=== PATIENT | male | born 1990 | race Caucasian/White ===

== ENCOUNTER 2018-10-05 22:23 | Emergency (ER) | payer BC ==
--- NOTE | 2018-10-05 23:21 | EDM.PDOC ---
ED HPI GENERAL MEDICAL PROBLEM - General Chief Complaint: Abdominal Pain Stated Complaint: RT SIDE PAIN Time Seen by Provider: 10/05/18 22:53 Source of Information: Reports: Patient, RN Notes Reviewed, Significant Other ( Girlfriend) History Limitations: Reports: No Limitations - History of Present Illness INITIAL COMMENTS - FREE TEXT/NARRATIVE: The patient states that he has been coughing for the past 2 or 3 weeks, but felt fine today. He states that he developed right upper quadrant pain, radiating to his right back (he indicates his right mid back, posterior axillary line), around 15:30 to 16:00 this afternoon. He states that he was not coughing at the time. He has had some nausea and one episode of emesis prior to coming to the ED. He has chronic watery diarrhea. He has had a subjective fever with chills today. At present, the pain is persistent, even if he remains still , but made worse if he coughs or takes a deep breath. No prior similar symptoms. The patient states that he took some ibuprofen around 17:30 this evening, without relief of symptoms. The patient relates that he had a cholecystectomy about 6 months ago. He does not recall the female surgeon's name. He states that he was told at the time that one or two gallstones might have gotten away. The patient does not have a PCP. Right Upper Abdomen Pain Score (Numeric/FACES): 7 - Related Data Allergies Allergy/AdvReac Type Severity Reaction Status Date / Time No Known Allergies Allergy Verified 10/05/18 22:30 Home Meds: Home Meds Orphenadrine [Norflex] 1 tab PO Q12H PRN #14 tab.er 10/06/18 [Rx] Past Medical History HEENT History: Reports: Allergic Rhinitis, Impaired Vision Other HEENT History: Wears glasses Endocrine/Metabolic History: Reports: Obesity/BMI 30+ - Past Surgical History HEENT Surgical History: Reports: Adenoidectomy, Oral Surgery (wisdom teeth extraction), Tonsillectomy GI Surgical History: Reports: Cholecystectomy (around Apr 2018) Social & Family History - Tobacco Use Smoking Status *Q: Never Smoker Tobacco Use Within Last Twelve Months: Smokeless Tobacco (Chews on occasion, but used to chew 1 can/day) - Alcohol Use Alcohol Use History: Yes Days Per Week of Alcohol Use: 7 Number of Drinks Per Day: 4 Total Drinks Per Week: 28 Alcohol Use Frequency: Socially (occasionally to excess) - Recreational Drug Use Recreational Drug Use: No - Living Situation & Occupation Living situation: Reports: , Alone Occupation: Employed (Construction) ED ROS GENERAL - Review of Systems Review Of Systems: ROS reveals no pertinent complaints other than HPI. ED EXAM, GENERAL - Physical Exam Exam: See Below Exam Limited By: No Limitations General Appearance: Alert, WD/WN, No Apparent Distress Eye Exam: Bilateral Eye: EOMI, Normal Inspection Ears: Normal External Exam, Hearing Grossly Normal Nose: Normal Inspection Throat/Mouth: Normal Inspection, Normal Lips, Normal Voice, No Airway Compromise Head: Atraumatic, Normocephalic Neck: Normal Inspection, Full Range of Motion Respiratory/Chest: No Respiratory Distress, Lungs Clear, Normal Breath Sounds, No Accessory Muscle Use. No: Crackles, Rhonchi, Wheezing, Pleural Rub Cardiovascular: Normal Peripheral Pulses, Regular Rate, Rhythm, No Gallop, No JVD, No Murmur, No Rub Peripheral Pulses: 4+: Radial (L), Radial (R) GI/Abdominal: Normal Bowel Sounds, Soft, No Organomegaly, No Distention, No Abnormal Bruit, No Mass, Tender (Minimal tenderness to palpation of the right upper quadrant, however, the patient has reproducible tenderness to palpation of the inferior right rib margin.), Other (Obese) (Male) Exam: Deferred Rectal (Males) Exam: Deferred Back Exam: Normal Inspection, Full Range of Motion, Other (No tenderness, including to the right mid back, posterior axillary line, where the patient indicates his pain radiates to). No: CVA Tenderness (L), CVA Tenderness (R) Extremities: Normal Inspection, Normal Range of Motion, No Pedal Edema, Normal Capillary Refill Neurological: Alert, Oriented, Normal Cognition, No Motor/Sensory Deficits Psychiatric: Normal Affect Skin Exam: Warm, Dry, Intact, Normal Color, No Rash Course - Vital Signs Last Recorded V/S: Last Vital Signs Temp 37.1 C 10/05/18 22:30 Pulse 109 H 10/05/18 22:30 Resp 20 10/05/18 22:30 BP 170/108 H 10/05/18 22:30 Pulse Ox 98 10/05/18 22:30 - Orders/Labs/Meds Orders: Active Orders 24 hr Category Date Time Status Chest 2V [CR] Stat Exams 10/05/18 23:14 Taken Ibuprofen [Motrin] Med 10/06/18 01:28 Once 600 mg PO ONETIME ONE Orphenadrine [Norflex] Med 10/06/18 01:28 Stat 100 mg PO ONETIME STA Labs: Laboratory Tests 10/05/18 10/05/18 Range/Units 23:30 23:30 WBC 4.97 (4.23-9.07) K/mm3 RBC 5.38 (4.63-6.08) M/mm3 Hgb 16.5 (13.7-17.5) gm/L Hct 46.6 (40.1-51.0) % MCV 86.6 (79.0-92.2) fl MCH 30.7 (25.7-32.2) pg MCHC 35.4 (32.2-35.5) g/dl RDW Std Deviation 39.5 (35.1-43.9) fL Plt Count 214 (163-337) K/mm3 MPV 9.2 L (9.4-12.3) fl Neutrophils % (Manual) 72 H (40-60) % Band Neutrophils % 3 (0-10) % Lymphocytes % (Manual) 11 L (20-40) % Atypical Lymphs % 0 % Monocytes % (Manual) 14 H (2-10) % Eosinophils % (Manual) 0 L (0.8-7.0) % Basophils % (Manual) 0 L (0.2-1.2) Platelet Estimate Adequate Plt Morphology Comment Normal RBC Morph Comment Normal Sodium 136 (136-145) mEq/L Potassium 3.5 (3.5-5.1) mEq/L Chloride 101 (98-107) mEq/L Carbon Dioxide 21 (21-32) mEq/L Anion Gap 17.5 H (5-15) BUN 9 (7-18) mg/dL Creatinine 1.3 (0.7-1.3) mg/dL Est Cr Clr Drug Dosing 93.90 mL/min Estimated GFR (MDRD) > 60 (>60) mL/min BUN/Creatinine Ratio 6.9 L (14-18) Glucose 116 H (74-106) mg/dL Calcium 8.8 (8.5-10.1) mg/dL Total Bilirubin 0.7 (0.2-1.0) mg/dL AST 102 H (15-37) U/L ALT 102 H (16-63) U/L Alkaline Phosphatase 89 (46-116) U/L Total Protein 7.3 (6.4-8.2) g/dl Albumin 3.9 (3.4-5.0) g/dl Globulin 3.4 gm/dL Albumin/Globulin Ratio 1.2 (1-2) Lipase 178 (73-393) U/L - Re-Assessments/Exams Free Text/Narrative Re-Assessment/Exam: 10/05/18 23:15 The patient's history of cholecystectomy about 6 months ago leads me to be concerned about a retained common bile duct stone, however, on physical examination, he is tender to the lower rib margin, not to the right upper quadrant of his abdomen, therefore I think the likelihood of a retained common bile duct stone is quite small. Even less likely is the likelihood that the patient has a lower right pneumonia. I believe that the patient's pain is most likely due to a muscle strain related to recent coughing. For today's purposes, I have ordered some blood work and a chest x-ray, but if they are normal, as I anticipate that they will be, I believe the patient can safely be discharged home with a prescription for Norflex. If his symptoms persist, I would then have him follow-up with the surgeon that performed his cholecystectomy, to perform further evaluation for a retained common bile duct stone, a workup that would likely include a MRCP. 10/06/18 00:00 2 view chest radiograph appears to be grossly normal. The cardiac silhouette is within normal limits. No pulmonary vascular congestion. No pleural effusions. No focal infiltrate. No pneumothorax. Formal read per the Radiologist pending. 10/06/18 01:29 Test results discussed with the patient and his girlfriend. Today's workup is unremarkable. There is no suggestion of infection. His transaminases are mildly elevated, but his alkaline phosphatase and total bilirubin are well within normal limits. For today's purposes, I will start the patient on oral Norflex, and send in a prescription for the same. I would also like him to take over-the- counter ibuprofen. As above, if he continues to have pain after a few days, I would like him to follow-up with the surgeon who performed his cholecystectomy, for further evaluation. Departure - Departure Time of Disposition: 01:31 Disposition: Home, Self-Care 01 Condition: Good Clinical Impression: Intercostal muscle pain - Discharge Information *PRESCRIPTION DRUG MONITORING PROGRAM REVIEWED*: Not Applicable *COPY OF PRESCRIPTION DRUG MONITORING REPORT IN PATIENT AMPARO: Not Applicable Referrals: PCP,None [Primary Care Provider] - Forms: ED Department Discharge Additional Instructions: You were seen for pain in your upper right abdomen, that radiated through to your right back. Workup in the ER included blood work and a chest x-ray, all of which were unremarkable. There is no sign of an infection. Based on your history, physical examination, and ER tests, your pain is most likely due to a muscle spasm, however, it is also possible that you have a retained common bile duct stone. You have been started on the muscle relaxant Norflex. A prescription for Norflex has been sent to the [facility], located in the [facility] grocery store. Take one tablet of Norflex every 12 hours, as prescribed. In addition to Norflex, we recommend that you take [id number] ibuprofen, 2 -3 tablets (400-600 mg) every 8 hours, with food, as needed for discomfort. If you continue to have pain after a few days, we recommend that you follow-up with the surgeon that performed your cholecystectomy, for further evaluation, that may include a MRCP. If any other problems, please do not hesitate to return to the ER. - My Orders Last 24 Hours: My Active Orders 10/05/18 23:14 Chest 2V [CR] Stat 10/06/18 01:28 Ibuprofen [Motrin] 600 mg PO ONETIME ONE Orphenadrine [Norflex] 100 mg PO ONETIME STA - Assessment/Plan Last 24 Hours: My Active Orders 10/05/18 23:14 Chest 2V [CR] Stat 10/06/18 01:28 Ibuprofen [Motrin] 600 mg PO ONETIME ONE Orphenadrine [Norflex] 100 mg PO ONETIME STA
[2018-10-06] MEDS ORDERED: Orphenadrine 100 MG Tab.ER PO STA (01:28)
[2018-10-06] MEDS ORDERED: Ibuprofen 600 MG Tab PO ONE (01:28)
[2018-10-06] MEDS ORDERED: Orphenadrine 100 MG Tab.ER ONE (01:31)
--- NOTE | 2018-10-06 18:27 | CR ---
Chest: Two views of the chest were obtained. Comparison: No prior chest x-ray. Heart size and mediastinum are normal. Slight scar or minimal atelectasis is noted within the right upper lung. Lungs otherwise are clear. Bony structures are unremarkable. Impression: 1. Minimal scar or atelectasis within the right upper lung. 2. Nothing acute is seen. Diagnostic code #2
== END 2018-10-06 01:40 | disposition home or self-care (01) ==
LOC: JD.ED 22:23
DX: R07.82 Intercostal pain (principal); F17.220 Nicotine dependence, chewing tobacco, uncomplicated
CPT/HCPCS: 36415; 71046; 80053; 83690; 85007; 85027; 99284; A9270

== ENCOUNTER 2018-10-09 18:05 | Emergency (ER) | payer BC ==
[2018-10-09] MEDS ORDERED: Sodium Chloride 0.9% 1,000 ML IV SCH (19:20)
[2018-10-09] MEDS ORDERED: Sodium Chloride 0.9% 1,000 ML ONE (19:24)
--- NOTE | 2018-10-09 20:13 | EDM.PDOC ---
ED HPI GENERAL MEDICAL PROBLEM - General Chief Complaint: Fever Stated Complaint: ABNORMAL LABS Time Seen by Provider: 10/09/18 18:30 Source of Information: Reports: Patient, Old Records History Limitations: Reports: No Limitations - History of Present Illness INITIAL COMMENTS - FREE TEXT/NARRATIVE: 28 year old male is sent over from the clinic for IV hydration and possible admission. Patient was seen in the ER on 10-05-18 for right sided chest pain. Chest xray was done ans was unremarkable. He was given muscle relaxers and these have significantly improved the pain. Patient had a lap henrry about 6 months ago. Informed some stones may have gotten into the biliary tree. He was therefore instructed to follow-up with the surgeon who preformed the lap henrry. Patient presented to the surgeons office today for follow-up. Seen by the surgeon's FILE CONVERSION OPERATOR. Patient had labs including a CBC, CMP, UA and several other preformed. Also had a CT of the chest, abdomen and pelvis. Found to have thrombocytopenia, leukopenia and elevated transaminases. CT shows mild splenomegaly and cyst to the left kidney. Sent over to the ER for hydration and possible admission. Upon my interview the patient appears in no distress. Reports symptoms first started with a sore throat, cough and right sided chest pain. Since being seen in the ER reports the chest pain has significantly improved. Patient reports he has since developed fever, highest of 105 at home. Fever resolves with tylenol or motrin. Has not had any tylenol or motrin today. Denies any ear pain, shortness of breath, abdominal pain, nausea, vomiting, urinary symptoms or diarrhea. Patient denies any recent travel. Lives at home with children. - Related Data Allergies Allergy/AdvReac Type Severity Reaction Status Date / Time No Known Allergies Allergy Verified 10/09/18 22:27 Home Meds: Home Meds Orphenadrine [Norflex] 1 tab PO Q12H PRN #14 tab.er 10/06/18 [Rx] Codeine/Promethazine [Phenergan with Codeine] 5 ml PO Q6HR PRN #120 ml 10/09/18 [Rx] Past Medical History HEENT History: Reports: Allergic Rhinitis, Impaired Vision Other HEENT History: Wears glasses Endocrine/Metabolic History: Reports: Obesity/BMI 30+ - Past Surgical History HEENT Surgical History: Reports: Adenoidectomy, Oral Surgery (wisdom teeth extraction), Tonsillectomy GI Surgical History: Reports: Cholecystectomy (around Apr 2018) Social & Family History - Living Situation & Occupation Living situation: Reports: , Alone Occupation: Employed (Construction) ED ROS GENERAL - Review of Systems Review Of Systems: See Below Constitutional: Reports: Fever (highest of 105 at home), Fatigue HEENT: Reports: Throat Pain. Denies: Ear Pain Respiratory: Reports: Cough. Denies: Shortness of Breath, Pleuritic Chest Pain Cardiovascular: Reports: Chest Pain (right anterior lateral chest pain; improving). Denies: Syncope GI/Abdominal: Denies: Abdominal Pain, Diarrhea, Nausea, Vomiting : Reports: No Symptoms ED EXAM, GENERAL - Physical Exam Exam: See Below Exam Limited By: No Limitations General Appearance: Alert, WD/WN, No Apparent Distress Ears: Normal External Exam, Normal Canal, Hearing Grossly Normal, Normal TMs Ear Exam: Bilateral Ear: Auricle Normal, Canal Normal, TM normal Nose: Normal Inspection Throat/Mouth: Normal Inspection, Normal Lips, Normal Oropharynx, Normal Voice, No Airway Compromise Neck: Normal Inspection Respiratory/Chest: No Respiratory Distress, Lungs Clear, Normal Breath Sounds Cardiovascular: Normal Peripheral Pulses, Regular Rate, Rhythm, No Murmur GI/Abdominal: Normal Bowel Sounds, Soft, Non-Tender Neurological: Alert, Oriented, Normal Cognition Psychiatric: Normal Affect, Normal Mood Skin Exam: Warm, Dry, Normal Color Course - Orders/Labs/Meds Labs: Laboratory Tests 10/09/18 10/09/18 Range/Units 19:20 19:20 Monoscreen Negative (NEGATIVE) Mycoplasma pneumon IgM Negative (NEGATIVE) Meds: Medications Discontinued Medications Generic Name Dose Route Start Last Admin Trade Name Madeleine PRN Reason Stop Dose Admin Sodium Chloride Confirm 10/09/18 19:24 Normal Saline Administered 10/09/18 19:25 Dose 1,000 mls @ as directed .ROUTE .STK-MED ONE Sodium Chloride 1,000 mls @ 999 mls/hr 10/09/18 19:20 Normal Saline IV 10/09/18 21:00 ASDIRECTED DYLAN - Re-Assessments/Exams Free Text/Narrative Re-Assessment/Exam: 10/09/18 21:28 Influenza and strep are negative. Reviewed the labs with the patient. Reviewed labs and imaging done at [place]. While his platelets and WBC are low this does not require admission at this time. Liver enzymes are mildly elevated but these have improved from 2-2-19 visit. Patient reports he has had mono in the past. He also reports he has been told about the left renal cyst and the splenomegaly in the past. Discussed additional testing. Offered reparatory panel but discussed how the results of this would not chemical cell changer at this point. Discussed hepatitis testing. He is low risk and has had no known exposure. No GI symptoms. Liver enzymes are not as high as I would expect with acute hepatitis. At this point the patient feels comfortable going home. I will discharge him home with recommendations to follow-up as labs should be followed to ensure they return to normal and if not he may require additional work up. Patient expresses understanding. Patient does feel improved after fluids. Discharge instructions as documented. Departure - Departure Time of Disposition: 21:31 Disposition: Home, Self-Care 01 Condition: Fair Clinical Impression: Viral upper respiratory illness, Elevated transaminase level, Leukopenia, Thrombocytopenia - Discharge Information *PRESCRIPTION DRUG MONITORING PROGRAM REVIEWED*: No *COPY OF PRESCRIPTION DRUG MONITORING REPORT IN PATIENT AMPARO: No Prescriptions: Codeine/Promethazine [Phenergan with Codeine] 5 ml PO Q6HR PRN #120 ml PRN Reason: Cough Instructions: Upper Respiratory Infection, Adult, [id number] Referrals: PCP,None [Primary Care Provider] - Forms: ED Department Discharge, ED Department Discharge Additional Instructions: Follow-up with family medicine in 1 week for recheck of your symptoms as well as to recheck your labs. At the [facility] recommend Vernell Cleveland or Barbara Abraham. Call [phone] to schedule with one of these providers. Continue to drink plenty of fluids. [id number] Tylenol or Motrin as needed for headaches and bodyaches. We will call you if you're rapid strep is positive. if you do not hear from us, assuming is negative. Cough syrup with codeine 5 mL by mouth every 6 hours as needed for cough. Codeine can be habit-forming, take as little as needed to control your cough. Do not drive or operate machinery within 10 hours taking codeine. Please return the ER if your symptoms change or worsen.
== END 2018-10-09 21:45 | disposition home or self-care (01) ==
LOC: JD.ED 18:05
DX: J06.9 Acute upper respiratory infection, unspecified (principal); D72.819 Decreased white blood cell count, unspecified; D69.6 Thrombocytopenia, unspecified; R79.89 Other specified abnormal findings of blood chemistry
CPT/HCPCS: 36415; 86308; 86738; 87081; 87430; 87804; 96360; 99283; J7040

== ENCOUNTER 2020-05-16 12:54 | Emergency (ER) | payer BC ==
[2020-05-16] MEDS ORDERED: Acetaminophen/HYDROcodone 325-5 MG Tab PO ONE (13:12)
--- NOTE | 2020-05-16 13:18 | EDM.PDOC ---
ED HPI GENERAL MEDICAL PROBLEM - General Chief Complaint: General Stated Complaint: L SIDE PAIN/BACK PAIN Time Seen by Provider: 05/16/20 13:07 Source of Information: Reports: Patient, RN Notes Reviewed History Limitations: Reports: No Limitations - History of Present Illness INITIAL COMMENTS - FREE TEXT/NARRATIVE: Patient is a 29-year-old male who presents to the ED for the evaluation of his left-sided rib pain. He notes that Sunday while he was working on his house, he was using a board of scaffolding when the board ended up dislodging and he fell down about 4 feet. He states that he struck the left the left chest pain seems to be getting worse, he states any sort of movement really makes him lateral side of his rib cage, and then also his right groin area. He states that the right groin seems to be getting better, he has some mild stiffness however the left-sided chest pain seems to be getting worse. He states that any sort of movement or deep breathing really seems to aggravate the pain. He did have some leftover hydrocodone for pain management from a different accident, and states he was using this it seemed to help the pain quite a bit enough so that he could function and get some work done. 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 Other than the left- sided chest pain, he is not having any major shortness of breath, if he is not moving around. He is not having any fever chills, or any other sick-like symptoms. Left Thoracic Pain Score (Numeric/FACES): 7 - Related Data Allergies Allergy/AdvReac Type Severity Reaction Status Date / Time No Known Allergies Allergy Verified 05/16/20 13:03 Home Meds: Home Meds Acetaminophen/HYDROcodone [Mentone 325-5 MG] 1 tab PO Q6H PRN #20 tablet 05/16/20 [Rx] Past Medical History HEENT History: Reports: Allergic Rhinitis, Impaired Vision Other HEENT History: Wears glasses Endocrine/Metabolic History: Reports: Obesity/BMI 30+ - Past Surgical History HEENT Surgical History: Reports: Adenoidectomy, Oral Surgery, Tonsillectomy GI Surgical History: Reports: Cholecystectomy Social & Family History - Tobacco Use Smoking Status *Q: Never Smoker Second Hand Smoke Exposure: No - Caffeine Use Caffeine Use: Reports: None - Recreational Drug Use Recreational Drug Use: No - Living Situation & Occupation Living situation: Reports: , Alone Occupation: Employed (Construction) ED ROS GENERAL - Review of Systems Review Of Systems: Comprehensive ROS is negative, except as noted in HPI. ED EXAM, GENERAL - Physical Exam Exam: See Below Exam Limited By: No Limitations General Appearance: Alert, WD/WN, No Apparent Distress Respiratory/Chest: No Respiratory Distress, Lungs Clear, Normal Breath Sounds, No Accessory Muscle Use, Other (chest tender to left lateral chest with light palpation.) Cardiovascular: Normal Peripheral Pulses, Regular Rate, Rhythm, No Murmur Extremities: Normal Inspection, Normal Capillary Refill Neurological: Alert, Oriented, Normal Cognition, No Motor/Sensory Deficits Psychiatric: Normal Affect, Normal Mood Skin Exam: Warm, Dry, Intact, Normal Color, No Rash Course - Vital Signs Last Recorded V/S: Last Vital Signs Temp 97.4 F 05/16/20 13:01 Pulse 82 05/16/20 13:01 Resp 16 05/16/20 13:01 BP 160/117 H 05/16/20 13:01 Pulse Ox 100 05/16/20 13:01 - Orders/Labs/Meds Orders: Active Orders 24 hr Category Date Time Status Chest 2V [CR] Stat Exams 05/16/20 13:07 Ordered Meds: Medications Discontinued Medications Generic Name Dose Route Start Last Admin Trade Name Madeleine PRN Reason Stop Dose Admin Hydrocodone Bitart/Acetaminophen 2 tab 05/16/20 13:12 05/16/20 13:20 Mentone 325-5 Mg PO 05/16/20 13:13 2 tab ONETIME ONE Administration - Re-Assessments/Exams Free Text/Narrative Re-Assessment/Exam: 05/16/20 13:19 Patient presents to the ED for evaluation of his left-sided chest pain. Chest x-ray will be obtained to rule out pneumothorax, likely that he is probably cracked a few ribs. He will be given 2 tablets of hydrocodone 5/325 while in the ER. And likely a prescription for this for outpatient management. 05/16/20 13:56 Patient's chest x-ray is done, and read by myself and Dr. Ogden, there is no obvious rib fractures noted. Likely could be a contused left lateral chest wall. Nonetheless will be quite painful, will have the area Haris wrapped to provide compression, given some pain management, have a follow-up in a week or 2 if things are not much better. Departure - Departure Time of Disposition: 13:57 Disposition: Home, Self-Care 01 Condition: Good Clinical Impression: Left-sided chest wall pain - Discharge Information *PRESCRIPTION DRUG MONITORING PROGRAM REVIEWED*: Yes *COPY OF PRESCRIPTION DRUG MONITORING REPORT IN PATIENT AMPARO: No Prescriptions: Acetaminophen/HYDROcodone [Mentone 325-5 MG] 1 tab PO Q6H PRN #20 tablet PRN Reason: Pain Instructions: Chest Wall Pain, [id number] Referrals: PCP,None [Primary Care Provider] - Forms: ED Department Discharge Additional Instructions: You have been evaluated in the ED for your left sided chest/rib pain. Your x-ray demonstrated no obvious fractures or bony abnormalities, however official radiology read is pending, you will be called and made notified if there is any change made apparent by the radiologist. Please use ice as tolerated to the affected area. You were given an Haris wrap, please use this around your chest to provide some compression to the area this should help relieve some of the pain. You may take Tylenol 500 mg or ibuprofen 600mg q6 hrs for pain relief. Please do so until you have a tolerable level of pain with activity. Do not exceed 4000mg Tylenol or 3200mg ibuprofen in a 24 hour time period. You were given a prescription for a strong pain medication, hydrocodone/acetaminophen 5/325 mg, please take 1 tab every 6 hours as needed for pain not relieved by Tylenol or ibuprofen alone. Please note this medication does contain Tylenol in it, so do not take more than 4000 mg in a 24- hour time span. These medications can be addictive, so please take as few as possible to achieve adequate pain control. These meds can also be quite constipating, recommend that you increase your oral fluid intake and take a stool softener like MiraLAX while taking these medications. Do not drive while taking this medication. Recommend you follow-up with a primary care provider if your pain is not much better in the next week or 2. Please return to ED if your symptoms should change or worsen. Sepsis Event Note (ED) - Evaluation Sepsis Screening Result: No Definite Risk - Focused Exam Vital Signs: Vital Signs Temp Pulse Resp BP Pulse Ox 05/16/20 13:01 97.4 F 82 16 160/117 H 100 - My Orders Last 24 Hours: My Active Orders 05/16/20 13:07 Chest 2V [CR] Stat - Assessment/Plan Last 24 Hours: My Active Orders 05/16/20 13:07 Chest 2V [CR] Stat
--- NOTE | 2020-05-16 19:55 | CR ---
Chest: 2 views of the chest were obtained. Comparison: Prior chest x-ray of 10/05/18. Heart size and mediastinum are normal. Lungs are clear with no acute parenchymal change. Bony structures are unremarkable. Impression: 1. Nothing acute is seen on 2 view chest x-ray. Diagnostic code #1 This report was dictated in MDT
== END 2020-05-16 14:21 | disposition home or self-care (01) ==
LOC: JD.ED 12:54
DX: R07.89 Other chest pain (principal); E66.9 Obesity, unspecified; Z68.32 Body mass index [BMI] 32.0-32.9, adult
CPT/HCPCS: 71046; 99283; A9270